=== PATIENT | male | born 1995 | race Caucasian/White ===

== ENCOUNTER 2019-08-18 18:30 | Emergency (ER) | payer MEDICAID ==
[~2019-08-18] VITALS: Ht 180.3 cm; Wt 65.9 kg
[2019-08-18 18:34] VITALS: BP 117/61
[2019-08-18] MEDS ORDERED: MUPI22OI30 TOP (19:43)
== END 2019-08-18 19:49 | disposition home or self-care (01) ==
LOC: ER 18:31
DX: L01.09 Other impetigo (principal)
CPT/HCPCS: 99283

== ENCOUNTER → 2019-11-04 | Emergency (ER) | payer MEDICAID ==
[~2019-11-04] VITALS: Ht 180.3 cm; Wt 70.9 kg
[~2019-11-04] MED LIST: PSEU240T6 PO
[2019-11-04 18:33] VITALS: BP 111/55
== END | disposition home or self-care (01) ==
LOC: ER 18:14
DX: R09.81 Nasal congestion (principal); Z20.828 Contact with and (suspected) exposure to other viral communicable diseases; J30.9 Allergic rhinitis, unspecified; R05 Cough; R53.83 Other fatigue; F17.210 Nicotine dependence, cigarettes, uncomplicated; Z79.899 Other long term (current) drug therapy
CPT/HCPCS: 36415; 99283; U0003

== ENCOUNTER 2021-07-04 14:33 | Emergency (ER) | payer MEDICAID ==
[~2021-07-04] VITALS: Ht 180.3 cm; Wt 76.4 kg
[2021-07-04 14:48] VITALS: BP 131/89
[2021-07-04] MEDS ORDERED: TETanus/Pertussis (Acell)/Diphther VAC/PF (Tdap-Adult) 0.5ml syringe IMVAC ONE (18:10)
[2021-07-04] MEDS ORDERED: fluorescein sod 1mg ophthalmic strip EACHEYE ONE (18:10)
[2021-07-04] MEDS ORDERED: proparacaine 0.5% ophthalmic drops 15ml EACHEYE ONE (18:10)
[2021-07-04] MEDS ORDERED: LIDOcaine 1% 30ml preserv. free vial TOP ONE (18:10)
== END 2021-07-04 19:40 | disposition home or self-care (01) ==
LOC: ER 14:34
DX: S01.111A Laceration without foreign body of right eyelid and periocular area, initial encounter (principal); W20.8XXA Other cause of strike by thrown, projected or falling object, initial encounter; Y93.89 Activity, other specified; Y92.89 Other specified places as the place of occurrence of the external cause; Y99.8 Other external cause status
CPT/HCPCS: 12011; 90715; 99283

== ENCOUNTER 2022-05-25 17:59 | Emergency (ER) | payer MEDICAID ==
[~2022-05-25] VITALS: Ht 180.3 cm; Wt 75.0 kg
[2022-05-25 18:10] VITALS: BP 99/52
[2022-05-25] MEDS ORDERED: orphenadrine citrate 60mg/2ml inj. IM ONE ×2 (20:05→20:10)
[2022-05-25] MEDS ORDERED: ketorolac trometh inj. 60 MG/2 ML VIAL IM ONE (20:05)
[2022-05-25] MEDS ORDERED: ketorolac trometh. 30mg/ml inj. IM ONE (20:05)
--- NOTE | 2022-05-25 20:24 | NUR ---
im x2 given
== END 2022-05-25 20:28 | disposition home or self-care (01) ==
LOC: ER 18:01
DX: M54.6 Pain in thoracic spine (principal); V19.9XXA Pedal cyclist (driver) (passenger) injured in unspecified traffic accident, initial encounter; Y93.89 Activity, other specified; Y92.89 Other specified places as the place of occurrence of the external cause; Y99.8 Other external cause status
CPT/HCPCS: 71046; 96372; 99284; J1885; J2360